=== PATIENT | male | born 1980 | race Caucasian/White ===

== ENCOUNTER 2019-12-26 08:37 | Emergency (ER) | payer OTHER ==
[~2019-12-26] VITALS: Ht 180.3 cm; Wt 111.5 kg
[2019-12-26 08:38] VITALS: BP 133/85
== END 2019-12-26 09:15 | disposition home or self-care (01) ==
LOC: M ED 08:37
DX: S50.12XA Contusion of left forearm, initial encounter (principal); X58.XXXA Exposure to other specified factors, initial encounter; Y92.89 Other specified places as the place of occurrence of the external cause; Y93.89 Activity, other specified; Y99.8 Other external cause status